=== PATIENT | female | born 1960 | race Caucasian/White ===

== ENCOUNTER 2018-02-19 13:08 | Observation (INO) ==
[2018-02-19 14:37] LABS: Basophils % 0.3 % (0.0-0.8); Hematocrit 40.2 VOL% (35.7-47.0); Hemoglobin 14.1 GM/DL (12.0-16.0); Immature Granulocytes % 0.3 %; Immature Granulocytes Absolute 0.02 #; Lymphocytes # 0.8 10*3/uL (1.4-4.0); Lymphocytes % 11.7 % (21.3-54.2); Mean Corpuscular HGB Conc 35.1 GM/DL (32-36); Mean Corpuscular Hemoglobin 29 PG (27-34); Mean Corpuscular Volume 81.2 FL (87-102); Mean Platelet Volume 11.1 FL (9.6-12.0); Monocytes # 0.1 10*3/uL (0.11-0.8); Monocytes % 0.9 % (1.7-12.7); Neutrophils # 5.8 10*3/uL (1.4-7.4); Neutrophils % 86.8 % (38.7-73.9); Platelet Count 164 T/CUMM (130-400); Red Blood Count 4.95 MC/CUMM (3.8-5.5); Red Cell Distribution Width 15.5 % (9.3-17.3); White Blood Count 6.7 T/CUMM (4-12)
[2018-02-19 14:46] LABS: PT Patient Result 10.4 SECS; Partial Thromboplastin Time 24.3 SECS (0-40)
[2018-02-19 14:59] LABS: Alanine Aminotransferase 28 U/L (13-56); Albumin 3.9 G/DL (3.4-5.0); Alkaline Phosphatase 99 U/L (45-117); Aspartate Amino Transferase 27 U/L (0-37); Blood Urea Nitrogen 12 MG/DL (7-18); Calcium 9.3 MG/DL (8.5-10.1); Glucose 149 MG/DL (74-106); Potassium 2.9 MMOL/L (3.5-5.1); Sodium 136 MMOL/L (136-145)
[2018-02-19] MEDS ORDERED: ACETAMINOPHEN 325 MG TABLET PO PRN (16:13)
[2018-02-19] MEDS ORDERED: PROMETHAZINE 25 MG TABLET PO PRN (16:13)
[2018-02-19] MEDS ORDERED: diphenhydrAMINE CAP 25 MG CAPSULE PO PRN (16:13)
[2018-02-19] MEDS ORDERED: LACTULOSE 20 GM/30 ML UDCUP PO PRN (16:13)
[2018-02-19] MEDS ORDERED: ONDANSETRON 4 MG/2 ML VIAL IV PRN (16:13)
[2018-02-19] MEDS ORDERED: traZODone 50 MG TABLET PO PRN (16:20)
[2018-02-19] MEDS ORDERED: HEPARIN 5,000 UNIT/1 ML VIAL SUBCUT SCH (16:30)
[2018-02-19] MEDS ORDERED: SODIUM CHLORIDE 0.9% 1,000 ML IV SCH (16:30)
[2018-02-19] MEDS ORDERED: DEXTROSE 50% 25 GM/50 ML VIAL IV PRN ×2 (16:34)
[2018-02-19] MEDS ORDERED: GLUCAGON 1 MG VIAL IM PRN ×2 (16:34)
[2018-02-19 16:41] LABS: Apearance,Urine CLEAR (Clear); Bacteria,Urine Occasional /HPF (Few); Bilirubin,Urine Negative (Negative); Blood, Urine Negative (Negative); Glucose,Urine (UA) >=500 mg/dL (Negative); Ketones,Urine Negative (Negative); Nitrite,Urine Negative (Negative); Protein,Urine Negative; RBC,Urine 1 /HPF (0-4); Urine Color Straw (Yellow); Urine Specific Gravity 1.011 (1.001-1.035); Urine Urobilinogen < 2.0 EU/DL (0.2-1.0); WBC,Urine 1 /HPF (0-6)
[2018-02-19] MEDS ORDERED: LABETALOL 20 MG/4 ML SYRINGE IV PRN (16:45)
[2018-02-19 16:49] LABS: Barbiturates Screen,Urine Negative (Negative); Benzodiazepines Screen,Urine Negative (Negative); Cannabinoid Screen,Urine Negative (Negative); Opiate Screen,Urine Negative (Negative); Phencyclidine Screen,Urine Negative (Negative)
[2018-02-19] MEDS ORDERED: POTASSIUM CHLORIDE 20 MEQ TABLET PO STA (16:51)
[2018-02-19] MEDS ORDERED: POTASSIUM CHLORIDE 20 MEQ TABLET PO ONE (16:56)
[2018-02-19] MEDS ORDERED: SODIUM CHLOR 0.9% KCL 40 MEQ 40 MEQ/1,000 ML BAG IV SCH (17:00)
[2018-02-19 17:07] LABS: Risk Ratio 2.78; VLDL CHOLESTEROL 44.4 MG/DL
[2018-02-19] MEDS ORDERED: EMPAGLIFLOZIN PO SCH (21:00)
[2018-02-19] MEDS ORDERED: ATORVASTATIN 40 MG TABLET PO SCH (21:00)
[2018-02-19] MEDS ORDERED: [UNRECOGNIZED DRUG - OTHER] PO SCH (21:00)
[2018-02-19] MEDS ORDERED: METFORMIN HCL PO SCH (21:00)
[2018-02-19] MEDS ORDERED: ROSUVASTATIN 10 MG TABLET PO SCH (21:00)
[2018-02-19] MEDS ORDERED: ENOXAPARIN 40 MG/0.4 ML SYRINGE SUBCUT SCH (21:00)
[2018-02-19] MEDS: SERTRALINE 100 MG TABLET PO SCH (21:08)
[2018-02-19] MEDS: DOCUSATE SODIUM 100 MG CAPSULE PO SCH (21:08)
[2018-02-19] MEDS: risperiDONE 1 MG TABLET PO SCH (21:09)
[2018-02-19] MEDS: INSULIN REGULAR 100 UNIT/ML SUBCUT SCH (21:12)
[2018-02-20 04:48] LABS: Basophils % 0.1 % (0.0-0.8); Hematocrit 38.7 VOL% (35.7-47.0); Hemoglobin 13.1 GM/DL (12.0-16.0); Immature Granulocytes % 0.3 %; Immature Granulocytes Absolute 0.02 #; Lymphocytes # 0.9 10*3/uL (1.4-4.0); Lymphocytes % 13.3 % (21.3-54.2); Mean Corpuscular HGB Conc 33.9 GM/DL (32-36); Mean Corpuscular Hemoglobin 28 PG (27-34); Mean Corpuscular Volume 83.2 FL (87-102); Monocytes # 0.7 10*3/uL (0.11-0.8); Monocytes % 9.5 % (1.7-12.7); Neutrophils # 5.4 10*3/uL (1.4-7.4); Neutrophils % 76.8 % (38.7-73.9); Platelet Count 140 T/CUMM (130-400); Red Blood Count 4.65 MC/CUMM (3.8-5.5); Red Cell Distribution Width 15.8 % (9.3-17.3)
[2018-02-20 05:09] LABS: Albumin 3.5 G/DL (3.4-5.0); Bilirubin,Total 0.9 MG/DL (0.2-1.0); Osmolality,Calculated 284.1 MOS/KG (273-304); Potassium 3.2 MMOL/L (3.5-5.1); Total Protein 7.1 G/DL (6.4-8.3)
[2018-02-20] MEDS: DOCUSATE SODIUM 100 MG CAPSULE PO SCH (08:43)
[2018-02-20] MEDS: SERTRALINE 100 MG TABLET PO SCH (08:43)
[2018-02-20] MEDS: risperiDONE 1 MG TABLET PO SCH (08:43)
[2018-02-20] MEDS: INSULIN REGULAR 100 UNIT/ML SUBCUT SCH ×3 (08:50→16:30)
[2018-02-20] MEDS ORDERED: ASPIRIN 325 MG TABLET PO SCH (09:00)
[2018-02-20] MEDS ORDERED: SERTRALINE 100 MG TABLET PO SCH (09:00)
[2018-02-20] MEDS ORDERED: CETIRIZINE 10 MG TABLET PO SCH (09:00)
[2018-02-20] MEDS ORDERED: ASPIRIN CHEW 81 MG TABLET PO SCH (09:00)
[2018-02-20] MEDS ORDERED: hydroCHLOROthiazide 25 MG TABLET PO SCH (09:00)
[2018-02-20] MEDS ORDERED: METOPROLOL TARTRATE 50 MG TABLET PO SCH (09:00)
[2018-02-20] MEDS ORDERED: POTASSIUM CHLORIDE 20 MEQ TABLET PO SCH (09:00)
[2018-02-20] MEDS ORDERED: PANTOPRAZOLE 40 MG TABLET PO SCH (09:00)
[2018-02-20 16:13] VITALS: BP 124/63
[2018-02-20] MEDS ORDERED: OMEGA 3 ACID ETHYL ESTERS 1 GM CAPSULE PO SCH (21:00)
== END 2018-02-20 17:40 | disposition home or self-care (01) ==
LOC: N.EDINP 13:08 → N.ED 13:08 → INTOOBSV 16:14 → OBSVTOIN 16:45 → N.EDINP 17:38 → N.4E 18:15
PROVIDERS: ADMIT Internal Medicine; ATTEND Internal Medicine

== ENCOUNTER 2021-10-31 17:42 | Observation (INO) ==
[2021-10-31 18:13] LABS: Basophils % 0.5 % (0.0-0.8); Eosinophils # 0.1 10*3/uL (0.0-0.87); Eosinophils % 3.2 % (0.00-10.9); Hematocrit 28.1 VOL% (35.7-47.0); Hemoglobin 8.9 GM/DL (12.0-16.0); Immature Granulocytes Absolute 0.04 #; Lymphocytes # 1.5 10*3/uL (1.4-4.0); Lymphocytes % 37.9 % (21.3-54.2); Mean Corpuscular HGB Conc 31.7 GM/DL (32-36); Mean Corpuscular Volume 85.9 FL (87-102); Monocytes # 0.5 10*3/uL (0.11-0.8); Monocytes % 11.6 % (1.7-12.7); Neutrophils % 45.8 % (38.7-73.9); Platelet Count 124 T/CUMM (130-400); Red Blood Count 3.27 MC/CUMM (3.8-5.5); Red Cell Distribution Width 21.7 % (9.3-17.3); White Blood Count 4.1 T/CUMM (4-12)
[2021-10-31] MEDS ORDERED: PROMETHAZINE 25 MG/1 ML VIAL IM STA (18:24)
[2021-10-31] MEDS ORDERED: ONDANSETRON 4 MG/2 ML VIAL IV STA (18:24)
[2021-10-31 18:34] LABS: Band Neutrophils 13 % (0-10); Eosinophils 6 % (0-10); Lymphocytes 29 % (20-55); Platelet Estimate Decreased; Total Cells Counted 100
[2021-10-31 18:35] LABS: Acanthocytes 1+; Anisocytosis 2+; Ovalocytes 1+; Poikilocytosis 1+; Polychromasia 1+
[2021-10-31 18:38] LABS: Albumin 3.5 G/DL (3.4-5.0); Calcium 9.3 MG/DL (8.5-10.1); Osmolality,Calculated 280.1 MOS/KG (273-304); Potassium 3.4 MMOL/L (3.5-5.1)
[2021-10-31] MEDS ORDERED: PANTOPRAZOLE 40 MG VIAL IV STA (18:55)
[2021-10-31] MEDS ORDERED: SODIUM CHLORIDE 0.9% 1,800 ML IV ONE (18:55)
[2021-10-31] MEDS ORDERED: MAGNESIUM SULF RIDER 2 GM/50 ML PREMIX IV STA (19:26)
[2021-10-31] MEDS ORDERED: LABETALOL 20 MG/4 ML SYRINGE IV ONE (19:59)
[2021-10-31] MEDS ORDERED: LABETALOL 20 MG/4 ML SYRINGE IV STA (20:15)
[2021-10-31] MEDS ORDERED: GLUCAGON 1 MG VIAL IM PRN (20:52)
[2021-10-31] MEDS ORDERED: ACETAMINOPHEN 325 MG TABLET PO PRN (20:52)
[2021-10-31] MEDS ORDERED: DEXTROSE 10% 250 ML BAG IV PRN (20:57)
[2021-10-31] MEDS ORDERED: METOCLOPRAMIDE 10 MG/2 ML VIAL ONE (21:07)
[2021-10-31] MEDS: INSULIN REGULAR 100 UNIT/ML SUBCUT SCH (21:14)
[2021-10-31] MEDS: SODIUM CHLORIDE 0.9% 1,000 ML IV SCH (21:14)
[2021-10-31] MEDS: hydrALAZINE 20 MG/1 ML VIAL IV PRN (22:54)
[2021-11-01] MEDS: ONDANSETRON 4 MG/2 ML VIAL IV PRN ×3 (01:16→21:49)
[2021-11-01] MEDS: hydrALAZINE 20 MG/1 ML VIAL IV PRN ×3 (01:17→10:38)
[2021-11-01 01:25] LABS: Bilirubin,Urine Negative (Negative); Blood, Urine Trace mg/dL (Negative); Glucose,Urine (UA) >=1000 mg/dL (Negative); Ketones,Urine Trace mg/dL (Negative); Nitrite,Urine Negative (Negative); Protein,Urine Negative (Negative); Urine Appearance Clear (Clear); Urine Color Yellow (Yellow); Urine Specific Gravity 1.015 (1.001-1.035); Urine Urobilinogen 0.2 eU/dL (<2.0); Urine pH 6.5 (4.5-8.0)
[2021-11-01 01:29] LABS: RBC,Urine 0-1 /HPF (0-4)
[2021-11-01 02:13] LABS: Basophils % 0.8 % (0.0-0.8); Eosinophils % 1.1 % (0.00-10.9); Hematocrit 30.8 VOL% (35.7-47.0); Hemoglobin 9.8 GM/DL (12.0-16.0); Immature Granulocytes % 1.7 %; Immature Granulocytes Absolute 0.06 #; Lymphocytes # 0.8 10*3/uL (1.4-4.0); Lymphocytes % 22.3 % (21.3-54.2); Mean Corpuscular HGB Conc 31.8 GM/DL (32-36); Mean Corpuscular Volume 85.6 FL (87-102); Monocytes # 0.4 10*3/uL (0.11-0.8); Monocytes % 11.8 % (1.7-12.7); Neutrophils % 62.3 % (38.7-73.9); Platelet Count 190 T/CUMM (130-400); Red Cell Distribution Width 21.9 % (9.3-17.3); White Blood Count 3.6 T/CUMM (4-12)
[2021-11-01 02:40] LABS: Albumin 3.4 G/DL (3.4-5.0); Bilirubin,Total 1.3 MG/DL (0.20-1.00); Calcium 9.1 MG/DL (8.5-10.1); Osmolality,Calculated 276.7 MOS/KG (273-304); Potassium 4.2 MMOL/L (3.5-5.1); Total Protein 8.3 G/DL (6.4-8.2)
[2021-11-01] MEDS: PROMETHAZINE 25 MG/1 ML VIAL IM PRN (05:54)
[2021-11-01] MEDS: SODIUM CHLORIDE 0.9% 1,000 ML IV SCH ×2 (06:10→17:00)
[2021-11-01] MEDS ORDERED: RISPERIDONE 3 MG PO SCH (09:00)
[2021-11-01 09:14] LABS: % Iron Saturation 33.2 % (18-50); Ferritin 556.3 ng/mL (8-252)
[2021-11-01] MEDS: INSULIN REGULAR 100 UNIT/ML SUBCUT SCH ×4 (09:29→21:49)
[2021-11-01] MEDS: ENOXAPARIN 40 MG/0.4 ML SYRINGE SUBCUT SCH (09:30)
[2021-11-01] MEDS: METOPROLOL TARTRATE 50 MG TABLET PO SCH (12:11)
[2021-11-01] MEDS: hydroCHLOROthiazide 25 MG TABLET PO SCH (12:11)
[2021-11-01 13:37] LABS: Folate > 24.00 NG/ML (5.38-24.0); Vitamin B12 571 PG/ML (211-911)
[2021-11-01] MEDS: PANTOPRAZOLE 40 MG VIAL IV SCH (14:10)
[2021-11-01] MEDS ORDERED: INSULIN GLARGINE 100 UNIT/ML SUBCUT SCH (21:00)
[2021-11-01] MEDS: ATORVASTATIN 80 MG TABLET PO SCH (21:51)
[2021-11-02] MEDS: hydrALAZINE 20 MG/1 ML VIAL IV PRN (00:38)
[2021-11-02] MEDS: SODIUM CHLORIDE 0.9% 1,000 ML IV SCH ×2 (03:00→16:11)
[2021-11-02 05:20] LABS: Basophils % 0.3 % (0.0-0.8); Eosinophils # 0.1 10*3/uL (0.0-0.87); Eosinophils % 2.5 % (0.00-10.9); Hematocrit 27.3 VOL% (35.7-47.0); Hemoglobin 8.8 GM/DL (12.0-16.0); Immature Granulocytes % 1.3 %; Immature Granulocytes Absolute 0.05 #; Lymphocytes # 1.2 10*3/uL (1.4-4.0); Lymphocytes % 29.3 % (21.3-54.2); Mean Corpuscular HGB Conc 32.2 GM/DL (32-36); Mean Corpuscular Volume 84.3 FL (87-102); Monocytes # 0.5 10*3/uL (0.11-0.8); Monocytes % 13.3 % (1.7-12.7); Neutrophils % 53.3 % (38.7-73.9); Platelet Count 205 T/CUMM (130-400); Red Blood Count 3.24 MC/CUMM (3.8-5.5); Red Cell Distribution Width 21.9 % (9.3-17.3)
[2021-11-02 05:42] LABS: Albumin 3.3 G/DL (3.4-5.0); Bilirubin,Total 1.7 MG/DL (0.20-1.00); Calcium 9.4 MG/DL (8.5-10.1); Osmolality,Calculated 269.7 MOS/KG (273-304); Potassium 3.3 MMOL/L (3.5-5.1); Total Protein 7.7 G/DL (6.4-8.2)
[2021-11-02 05:53] LABS: Risk Ratio 4.43; VLDL Cholesterol 22.6 MG/DL
[2021-11-02] MEDS: INSULIN REGULAR 100 UNIT/ML SUBCUT SCH ×4 (08:56→21:11)
[2021-11-02] MEDS: PANTOPRAZOLE 40 MG VIAL IV SCH (08:56)
[2021-11-02] MEDS: ENOXAPARIN 40 MG/0.4 ML SYRINGE SUBCUT SCH (08:56)
[2021-11-02] MEDS: METOPROLOL TARTRATE 50 MG TABLET PO SCH (09:09)
[2021-11-02] MEDS: hydroCHLOROthiazide 25 MG TABLET PO SCH (09:09)
[2021-11-02] MEDS: POTASSIUM CHLORIDE RIDER 10 MEQ/100 ML PREMIX IV PRN ×4 (09:55→14:40)
[2021-11-02] MEDS: ONDANSETRON 4 MG/2 ML VIAL IV PRN (09:55)
[2021-11-02] MEDS: POTASSIUM CHLORIDE RIDER 10 MEQ/100 ML PREMIX IV SCH ×2 (17:31→17:32)
[2021-11-02] MEDS: INSULIN GLARGINE 100 UNIT/ML SUBCUT SCH (21:11)
[2021-11-02] MEDS: ATORVASTATIN 80 MG TABLET PO SCH (21:11)
[2021-11-02] MEDS: PROMETHAZINE 25 MG/1 ML VIAL IM PRN (21:16)
[2021-11-03 05:09] LABS: Basophils % 0.8 % (0.0-0.8); Eosinophils # 0.1 10*3/uL (0.0-0.87); Eosinophils % 3.3 % (0.00-10.9); Hematocrit 28.2 VOL% (35.7-47.0); Hemoglobin 8.7 GM/DL (12.0-16.0); Immature Granulocytes % 1.4 %; Immature Granulocytes Absolute 0.05 #; Lymphocytes # 1.4 10*3/uL (1.4-4.0); Lymphocytes % 39.6 % (21.3-54.2); Mean Corpuscular HGB Conc 30.9 GM/DL (32-36); Mean Corpuscular Volume 85.2 FL (87-102); Monocytes # 0.5 10*3/uL (0.11-0.8); Monocytes % 14.8 % (1.7-12.7); Neutrophils % 40.1 % (38.7-73.9); Platelet Count 176 T/CUMM (130-400); Red Blood Count 3.31 MC/CUMM (3.8-5.5); Red Cell Distribution Width 21.3 % (9.3-17.3); White Blood Count 3.6 T/CUMM (4-12)
[2021-11-03 05:37] LABS: Bilirubin,Total 1.9 MG/DL (0.20-1.00); Calcium 8.9 MG/DL (8.5-10.1); Osmolality,Calculated 268.5 MOS/KG (273-304); Potassium 3.7 MMOL/L (3.5-5.1); Total Protein 7.3 G/DL (6.4-8.2)
[2021-11-03 05:40] LABS: Atypical Lymphocytes Few; Eosinophils 6 % (0-10); Hypochromia Slight; Lymphocytes 39 % (20-55); Microcytosis Slight; Ovalocytes Slight; Platelet Estimate Adequate; Total Cells Counted 100
[2021-11-03] MEDS: SODIUM CHLORIDE 0.9% 1,000 ML IV SCH (05:49)
[2021-11-03] MEDS ORDERED: MAGNESIUM SULF RIDER 2 GM/50 ML PREMIX IV ONE (08:30)
[2021-11-03] MEDS: INSULIN REGULAR 100 UNIT/ML SUBCUT SCH ×4 (09:44→21:06)
[2021-11-03] MEDS: hydroCHLOROthiazide 25 MG TABLET PO SCH (09:46)
[2021-11-03] MEDS: METOPROLOL TARTRATE 50 MG TABLET PO SCH (09:46)
[2021-11-03] MEDS: PANTOPRAZOLE 40 MG VIAL IV SCH (09:47)
[2021-11-03] MEDS ORDERED: propofoL 200 MG/20 ML VIAL IV ONE (10:10)
[2021-11-03] MEDS ORDERED: LIDOCAINE 2% 5 ML VIAL ONE (10:10)
[2021-11-03] MEDS: LACTATED RINGERS 1,000 ML IV SCH (18:30)
[2021-11-03] MEDS: ATORVASTATIN 80 MG TABLET PO SCH (21:05)
[2021-11-03] MEDS: INSULIN GLARGINE 100 UNIT/ML SUBCUT SCH (21:06)
[2021-11-04] MEDS: SODIUM CHLORIDE 0.9% 1,000 ML IV SCH (00:41)
[2021-11-04 05:58] LABS: Basophils % 0.8 % (0.0-0.8); Eosinophils # 0.1 10*3/uL (0.0-0.87); Eosinophils % 3.6 % (0.00-10.9); Hematocrit 25.5 VOL% (35.7-47.0); Hemoglobin 8.1 GM/DL (12.0-16.0); Immature Granulocytes % 1.1 %; Immature Granulocytes Absolute 0.04 #; Lymphocytes # 2.1 10*3/uL (1.4-4.0); Lymphocytes % 59.5 % (21.3-54.2); Mean Corpuscular HGB Conc 31.8 GM/DL (32-36); Mean Corpuscular Volume 85.6 FL (87-102); Monocytes # 0.5 10*3/uL (0.11-0.8); Monocytes % 13.7 % (1.7-12.7); Neutrophils % 21.3 % (38.7-73.9); Platelet Count 166 T/CUMM (130-400); Red Blood Count 2.98 MC/CUMM (3.8-5.5); Red Cell Distribution Width 21.3 % (9.3-17.3); White Blood Count 3.6 T/CUMM (4-12)
[2021-11-04 06:20] LABS: Albumin 2.9 G/DL (3.4-5.0); Bilirubin,Total 1.2 MG/DL (0.20-1.00); Calcium 9.2 MG/DL (8.5-10.1); Osmolality,Calculated 272.2 MOS/KG (273-304); Potassium 3.2 MMOL/L (3.5-5.1); Total Protein 6.9 G/DL (6.4-8.2)
[2021-11-04 07:20] LABS: Eosinophils 5 % (0-10); Lymphocytes 50 % (20-55); Platelet Estimate Normal; Total Cells Counted 100
[2021-11-04 07:21] LABS: Anisocytosis 1+; Elliptocytes 1+; Poikilocytosis 1+
[2021-11-04] MEDS: INSULIN REGULAR 100 UNIT/ML SUBCUT SCH ×2 (08:03→12:11)
[2021-11-04] MEDS: LACTATED RINGERS 1,000 ML IV SCH (08:06)
[2021-11-04] MEDS: POTASSIUM CHLORIDE RIDER 10 MEQ/100 ML PREMIX IV PRN (08:10)
[2021-11-04] MEDS: hydroCHLOROthiazide 25 MG TABLET PO SCH (09:49)
[2021-11-04] MEDS: PANTOPRAZOLE 40 MG VIAL IV SCH (09:49)
[2021-11-04] MEDS: METOPROLOL TARTRATE 50 MG TABLET PO SCH (09:49)
[2021-11-04 11:56] VITALS: BP 108/39
== END 2021-11-04 13:10 | disposition home or self-care (01) ==
LOC: EDUNIT# → EDBD → N.ED 17:42 → N.3E 17:42 → SUATTDRO 11-02 12:14
PROVIDERS: ADMIT Internal Medicine; ATTEND Internal Medicine

== ENCOUNTER 2022-02-08 08:12 | Inpatient (IN) ==
[2022-02-08] MEDS ORDERED: PANTOPRAZOLE INJ 80 MG in SODIUM CHLORIDE 0.9% 100 ML IV ONE (08:26)
[2022-02-08] MEDS ORDERED: SODIUM CHLORIDE 0.9% 1,000 ML IV STA ×2 (08:26→08:54)
[2022-02-08] MEDS ORDERED: ONDANSETRON 4 MG/2 ML VIAL IV ONE (08:26)
[2022-02-08 08:44] LABS: Eosinophils # 0.7 10*3/uL (0.0-0.87); Eosinophils % 1.3 % (0.00-10.9); Immature Granulocytes % 12.7 %; Immature Granulocytes Absolute 6.42 #; Lymphocytes # 7.3 10*3/uL (1.4-4.0); Lymphocytes % 14.4 % (21.3-54.2); Mean Corpuscular HGB Conc 30.3 GM/DL (32-36); Monocytes % 55.3 % (1.7-12.7); NRBC # 0.26 10*3/uL; Neutrophils % 16.3 % (38.7-73.9); Platelet Count 139 T/CUMM (130-400); Red Blood Count 1.67 MC/CUMM (3.8-5.5); Red Cell Distribution Width 32.8 % (9.3-17.3)
[2022-02-08 08:47] LABS: Hematocrit 13.2 VOL% (35.7-47.0); INR 1.7; PT Patient Result 17.8 SECS (10.1-12.1); White Blood Count 50.6 T/CUMM (4-12)
[2022-02-08] MEDS ORDERED: SODIUM CHLORIDE 0.9% 1,000 ML IV PRN (08:52)
[2022-02-08 08:59] LABS: Albumin 2.7 G/DL (3.4-5.0); Bilirubin,Total 2.9 MG/DL (0.20-1.00); Calcium 8.2 MG/DL (8.5-10.1); Potassium 3.7 MMOL/L (3.5-5.1); Total Protein 6.6 G/DL (6.4-8.2)
[2022-02-08 09:02] LABS: Band Neutrophils 4 % (0-10); Eosinophils 2 % (0-10); Lymphocytes 36 % (20-55); Nucleated Red Blood Cells 2 /100 WBC (0-5); Total Cells Counted 100
[2022-02-08 09:03] LABS: Atypical Lymphocytes Moderate; Hypochromia 1+; Microcytosis 1+; Ovalocytes Few
[2022-02-08 09:04] LABS: Giant Platelets Few; Platelet Estimate Adequate
[2022-02-08] MEDS ORDERED: SODIUM CHLORIDE 0.9% 500 ML IV STA (09:40)
[2022-02-08] MEDS ORDERED: diphenhydrAMINE 50 MG/1 ML VIAL IV STA (10:01)
[2022-02-08] MEDS ORDERED: diphenhydrAMINE 50 MG/1 ML VIAL ONE (10:02)
[2022-02-08 10:20] LABS: Arterial Base Excess iSTAT -17 MMOL/L (-2.5-2.5); Arterial Bicarbonate iSTAT 11.5 MMOL/L (20-26); Arterial O2 Saturation iSTAT 90 % (95-100); Arterial PCO2 iSTAT 40 MM HG (35-48); Arterial PO2 iSTAT 81 MM HG (80-95); Arterial Total CO2 iSTAT 13 MMO/L (23-27); Arterial pH iSTAT 7.069 (7.35-7.45)
[2022-02-08] MEDS: PANTOPRAZOLE INJ 200 MG in SODIUM CHLORIDE 0.9% 250 ML IV SCH (10:45)
[2022-02-08] MEDS ORDERED: PIPERACILLIN/TAZOBACTAM 3,375 MG in SODIUM CHLORIDE 0.9% 100 ML IV STA (10:55)
[2022-02-08] MEDS ORDERED: VANCOMYCIN INJ 1,000 MG in SODIUM CHLORIDE 0.9% 250 ML IV STA (10:55)
[2022-02-08] MEDS ORDERED: ETOMIDATE 20 MG/10 ML VIAL IV ONE (11:02)
[2022-02-08] MEDS ORDERED: ROCURONIUM 100 MG/10 ML VIAL IV ONE (11:03)
[2022-02-08] MEDS ORDERED: ALBUTEROL 2.5 MG/3 ML NEB RESP TX PRN (11:45)
[2022-02-08] MEDS ORDERED: MIDAZOLAM 100 MG in SODIUM CHLORIDE 0.9% 80 ML IV PRN (11:46)
[2022-02-08] MEDS ORDERED: LACTATED RINGERS 1,000 ML IV SCH (12:00)
[2022-02-08 12:02] LABS: Bacteria,Urine Few /HPF (Few); Hyaline Casts,Urine 16 /LPF (0-3); Mucus,Urine Few /LPF (Occasional); RBC,Urine 8 /HPF (0-4); Squamous Epithelial Cell,Urine Occasional /HPF (0-10)
[2022-02-08 12:04] LABS: Bilirubin,Urine Small mg/dL (Negative); Blood, Urine Trace mg/dL (Negative); Glucose,Urine (UA) Negative (Negative); Ketones,Urine Negative (Negative); Nitrite,Urine Negative (Negative); Protein,Urine 100 mg/dL (Negative); Urine Appearance Clear (Clear); Urine Color Dark yellow (Yellow); Urine Urobilinogen >= 8.0 eU/dL (<2.0); Urine pH 5.5 (4.5-8.0)
[2022-02-08 12:08] LABS: Folate 10.38 NG/ML (5.38-24.0)
[2022-02-08 12:18] LABS: Arterial Base Excess iSTAT -14 MMOL/L (-2.5-2.5); Arterial Bicarbonate iSTAT 15.1 MMOL/L (20-26); Arterial O2 Saturation iSTAT 98 % (95-100); Arterial PCO2 iSTAT 50 MM HG (35-48); Arterial PO2 iSTAT 153 MM HG (80-95); Arterial Total CO2 iSTAT 17 MMO/L (23-27)
[2022-02-08] MEDS ORDERED: SODIUM BICARBONATE 50 MEQ/50 ML VIAL IV ONE (12:49)
[2022-02-08] MEDS ORDERED: MIDAZOLAM 2 MG/2 ML VIAL ONE (13:21)
[2022-02-08 13:28] LABS: Hepatitis B Core IgM Quant 0.05 Index; Hepatitis B Surface Ag Quant < 0.10 Index; Hepatitis B Surface Ag Result Non-Reactive (NonReactive); Hepatitis C Virus Ab Quant < 0.02 Index; Hepatitis C Virus Ab Result Non-Reactive (NonReactive)
[2022-02-08] MEDS ORDERED: MIDAZOLAM 2 MG/2 ML VIAL IV ONE (13:30)
[2022-02-08] MEDS: SODIUM BICARB INJ 150 MEQ in STERILE WATER INJ 1,000 ML IV SCH ×2 (14:07→23:23)
[2022-02-08] MEDS: NOREPINEPHRINE 8 MG in SODIUM CHLORIDE 0.9% 242 ML IV PRN (14:08)
[2022-02-08 14:49] LABS: Basophils % 0.1 % (0.0-0.8); Eosinophils # 0.4 10*3/uL (0.0-0.87); Immature Granulocytes % 14.1 %; Lymphocytes # 5.9 10*3/uL (1.4-4.0); Mean Corpuscular HGB Conc 30.9 GM/DL (32-36); Mean Corpuscular Volume 81.4 FL (87-102); Monocytes # 23.3 10*3/uL (0.11-0.8); Monocytes % 51.4 % (1.7-12.7); NRBC # 0.33 10*3/uL; Neutrophils % 20.4 % (38.7-73.9); Platelet Count 116 T/CUMM (130-400); Red Blood Count 1.83 MC/CUMM (3.8-5.5); Red Cell Distribution Width 28.6 % (9.3-17.3)
[2022-02-08 14:52] LABS: ABG HCO3 22.8 MMOL/L (20-26); ABG Oxygen Saturation 99.8 % (95-100); ABG PCO2 31.2 MM HG (35-48); ABG PH 7.444 (7.35-7.45); ABG TCO2 19.5 MMOL/L (23-27)
[2022-02-08 14:53] LABS: White Blood Count 45.4 T/CUMM (4-12)
[2022-02-08 14:54] LABS: Hemoglobin 4.6 GM/DL (12.0-16.0)
[2022-02-08 14:55] LABS: Hematocrit 14.9 VOL% (35.7-47.0)
[2022-02-08] MEDS: fentaNYL INJ 1,250 MCG in SODIUM CHLORIDE 0.9% 225 ML IV PRN (15:07)
[2022-02-08 15:22] LABS: % Iron Saturation 104.1 % (18-50); Ferritin 20411.1 ng/mL (8-252)
[2022-02-08 15:39] LABS: Band Neutrophils 7 % (0-10); Eosinophils 2 % (0-10); Lymphocytes 35 % (20-55); Myelocytes 3 %; Nucleated Red Blood Cells 1 /100 WBC (0-5); Promyelocytes 1 %; Total Cells Counted 100
[2022-02-08 15:40] LABS: Anisocytosis 1+; Atypical Lymphocytes Few; Hypochromia 1+; Macrocytosis 1+; Microcytosis 1+
[2022-02-08 15:41] LABS: Ovalocytes Few; Platelet Estimate Decreased; Poikilocytosis Few; Polychromasia Few; Schistocytes Few; Tear Drop Cells Few
[2022-02-08] MEDS: VASOPRESSIN 100 UNITS in SODIUM CHLORIDE 0.9% 95 ML IV SCH (17:42)
[2022-02-08] MEDS ORDERED: PANTOPRAZOLE 40 MG VIAL IV SCH (21:00)
[2022-02-08] MEDS: PIPERACILLIN/TAZOBACTAM 3,375 MG in SODIUM CHLORIDE 0.9% 100 ML IV SCH (21:37)
[2022-02-09 00:36] LABS: Hematocrit 25.1 VOL% (35.7-47.0); Hemoglobin 8.3 GM/DL (12.0-16.0)
[2022-02-09] MEDS: NOREPINEPHRINE 8 MG in SODIUM CHLORIDE 0.9% 242 ML IV PRN ×2 (00:53→17:16)
[2022-02-09] MEDS: VASOPRESSIN 100 UNITS in SODIUM CHLORIDE 0.9% 95 ML IV SCH ×3 (02:00→18:06)
[2022-02-09] MEDS: PIPERACILLIN/TAZOBACTAM 3,375 MG in SODIUM CHLORIDE 0.9% 100 ML IV SCH ×3 (03:57→21:40)
[2022-02-09 04:21] LABS: ABG Base Excess 1.9 MMOL/L (-2.5-2.5); ABG HCO3 26.1 MMOL/L (20-26); ABG Oxygen Saturation 99.2 % (95-100); ABG PH 7.488 (7.35-7.45); ABG TCO2 23.2 MMOL/L (23-27)
[2022-02-09 04:36] LABS: INR 2.5
[2022-02-09 04:38] LABS: Cholesterol < 50 MG/DL (50-200); HDL Cholesterol 17 MG/DL (40-60); Risk Ratio 2.94; Triglycerides 66 MG/DL (2-150); VLDL Cholesterol 13.2 MG/DL
[2022-02-09 04:40] LABS: Basophils # 0.2 10*3/uL (0.0-0.2); Basophils % 0.4 % (0.0-0.8); Eosinophils # 0.6 10*3/uL (0.0-0.87); Hematocrit 24.1 VOL% (35.7-47.0); Hemoglobin 7.9 GM/DL (12.0-16.0); Immature Granulocytes % 15.4 %; Immature Granulocytes Absolute 8.57 #; Lymphocytes # 5.9 10*3/uL (1.4-4.0); Lymphocytes % 10.7 % (21.3-54.2); Mean Corpuscular HGB Conc 32.8 GM/DL (32-36); Mean Corpuscular Volume 80.1 FL (87-102); Monocytes # 31.1 10*3/uL (0.11-0.8); Monocytes % 56.1 % (1.7-12.7); NRBC # 0.47 10*3/uL; Neutrophils % 16.4 % (38.7-73.9); Platelet Count 97 T/CUMM (130-400); Red Blood Count 3.01 MC/CUMM (3.8-5.5); Red Cell Distribution Width 22.3 % (9.3-17.3); White Blood Count 55.5 T/CUMM (4-12)
[2022-02-09 04:52] LABS: Albumin 2.2 G/DL (3.4-5.0); Bilirubin,Total 3.7 MG/DL (0.20-1.00); Calcium 7.4 MG/DL (8.5-10.1); Potassium 3.1 MMOL/L (3.5-5.1); Total Protein 5.9 G/DL (6.4-8.2)
[2022-02-09 05:07] LABS: Band Neutrophils 3 % (0-10); Lymphocytes 41 % (20-55); Metamyelocytes 2 %; Nucleated Red Blood Cells 4 /100 WBC (0-5); Promyelocytes 1 %; Total Cells Counted 100
[2022-02-09 05:09] LABS: Atypical Lymphocytes Moderate; Hypochromia 1+; Microcytosis 1+; Ovalocytes Few
[2022-02-09 05:10] LABS: Schistocytes Slight; Target Cells Slight
[2022-02-09 05:11] LABS: Platelet Estimate Decreased
[2022-02-09] MEDS ORDERED: VANCOMYCIN INJ 1,500 MG in SODIUM CHLORIDE 0.9% 500 ML IV SCH (06:00)
[2022-02-09] MEDS ORDERED: MAGNESIUM SULF RIDER 4 GM/100 ML PREMIX IV PRN (06:58)
[2022-02-09] MEDS ORDERED: CALCIUM GLUCONATE RIDER 1,000 MG/50 ML PREMIX IV ONE (07:00)
[2022-02-09] MEDS: CHOLECALCIFEROL 5,000 UNIT TABLET PO SCH (08:22)
[2022-02-09] MEDS: SODIUM BICARB INJ 150 MEQ in STERILE WATER INJ 1,000 ML IV SCH ×2 (08:22→17:29)
[2022-02-09] MEDS: POTASSIUM CHLORIDE RIDER 20 MEQ/100 ML PREMIX IV PRN ×2 (08:29→10:50)
[2022-02-09] MEDS: PANTOPRAZOLE INJ 200 MG in SODIUM CHLORIDE 0.9% 250 ML IV SCH (10:08)
[2022-02-09] MEDS: fentaNYL INJ 1,250 MCG in SODIUM CHLORIDE 0.9% 225 ML IV PRN (10:10)
[2022-02-09] MEDS ORDERED: ROCURONIUM 50 MG/5 ML VIAL IV ONE (10:15)
[2022-02-09] MEDS: MIDAZOLAM DRIP 100 MG/100 ML PREMIX IV PRN (15:37)
[2022-02-10] MEDS: VASOPRESSIN 100 UNITS in SODIUM CHLORIDE 0.9% 95 ML IV SCH ×3 (02:30→21:45)
[2022-02-10] MEDS: SODIUM BICARB INJ 150 MEQ in STERILE WATER INJ 1,000 ML IV SCH (02:40)
[2022-02-10] MEDS: MIDAZOLAM DRIP 100 MG/100 ML PREMIX IV PRN ×2 (03:50→15:09)
[2022-02-10 05:31] LABS: Basophils # 0.2 10*3/uL (0.0-0.2); Basophils % 0.3 % (0.0-0.8); Eosinophils # 1.1 10*3/uL (0.0-0.87); Eosinophils % 2.3 % (0.00-10.9); Hematocrit 22.5 VOL% (35.7-47.0); Hemoglobin 7.3 GM/DL (12.0-16.0); Immature Granulocytes % 15.8 %; Immature Granulocytes Absolute 7.53 #; Lymphocytes # 5.2 10*3/uL (1.4-4.0); Lymphocytes % 10.9 % (21.3-54.2); Mean Corpuscular HGB Conc 32.4 GM/DL (32-36); Mean Corpuscular Volume 80.9 FL (87-102); Monocytes # 24.1 10*3/uL (0.11-0.8); Monocytes % 50.5 % (1.7-12.7); NRBC # 0.23 10*3/uL; Neutrophils % 20.2 % (38.7-73.9); Platelet Count 52 T/CUMM (130-400); Red Blood Count 2.78 MC/CUMM (3.8-5.5); Red Cell Distribution Width 22.6 % (9.3-17.3)
[2022-02-10 05:36] LABS: Arterial Bicarbonate iSTAT 30.4 MMOL/L (20-26); Arterial pH iSTAT 7.592 (7.35-7.45)
[2022-02-10 05:40] LABS: White Blood Count 47.7 T/CUMM (4-12)
[2022-02-10 06:17] LABS: Albumin 1.9 G/DL (3.4-5.0); Bilirubin,Total 3.6 MG/DL (0.20-1.00); Calcium 7.3 MG/DL (8.5-10.1); Osmolality,Calculated 292.1 MOS/KG (273-304); Potassium 2.6 MMOL/L (3.5-5.1); Total Protein 5.5 G/DL (6.4-8.2)
[2022-02-10 06:20] LABS: Band Neutrophils 21 % (0-10); Eosinophils 3 % (0-10); Lymphocytes 18 % (20-55); Metamyelocytes 5 %; Myelocytes 15 %; Nucleated Red Blood Cells 5 /100 WBC (0-5); Platelet Estimate Decreased; Promyelocytes 8 %; Total Cells Counted 100
[2022-02-10 06:21] LABS: Atypical Lymphocytes Few
[2022-02-10 06:22] LABS: Anisocytosis 1+; Burr Cells Few; Ovalocytes Few; Poikilocytosis Slight; Tear Drop Cells Few
[2022-02-10] MEDS: PIPERACILLIN/TAZOBACTAM 3,375 MG in SODIUM CHLORIDE 0.9% 100 ML IV SCH ×3 (06:30→22:10)
[2022-02-10] MEDS: CHOLECALCIFEROL 5,000 UNIT TABLET PO SCH (08:29)
[2022-02-10] MEDS ORDERED: POTASSIUM CHLORIDE INJ 50 MEQ in SODIUM CHLORIDE 0.9% 500 ML IV ONE (09:00)
[2022-02-10 09:29] LABS: Hematocrit 21.7 VOL% (35.7-47.0); Hemoglobin 7.1 GM/DL (12.0-16.0)
[2022-02-10 09:57] LABS: Vitamin B12 > 2000 PG/ML (211-911)
[2022-02-10] MEDS: SODIUM CHLOR 0.45% KCL 20 MEQ 20 MEQ/1,000 ML BAG IV SCH ×2 (09:57→23:17)
[2022-02-10] MEDS: PANTOPRAZOLE 40 MG VIAL IV SCH ×2 (09:57→21:59)
[2022-02-10 10:01] LABS: % Iron Saturation 99.2 % (18-50); Thyroid Stimulating Hormone 0.359 uIU/ml (0.358-3.74)
[2022-02-10 15:12] LABS: Hematocrit 21.6 VOL% (35.7-47.0)
[2022-02-10] MEDS ORDERED: SODIUM CHLORIDE 0.9% 1,000 ML IV PRN (18:03)
[2022-02-10] MEDS: POTASSIUM BICARB EFFERVESCENT 20 MEQ TAB.EFF PER TUBE PRN ×3 (18:25→23:18)
[2022-02-10] MEDS: FOLIC ACID 1 MG TABLET PO SCH (22:02)
[2022-02-11] MEDS: POTASSIUM BICARB EFFERVESCENT 20 MEQ TAB.EFF PER TUBE PRN ×6 (01:25→13:02)
[2022-02-11] MEDS: MIDAZOLAM DRIP 100 MG/100 ML PREMIX IV PRN ×2 (01:44→15:12)
[2022-02-11] MEDS: PIPERACILLIN/TAZOBACTAM 3,375 MG in SODIUM CHLORIDE 0.9% 100 ML IV SCH (04:46)
[2022-02-11 04:48] LABS: ABG Base Excess 7.3 MMOL/L (-2.5-2.5); ABG Oxygen Saturation 93.6 % (95-100); ABG PCO2 33.7 MM HG (35-48); ABG PH 7.554 (7.35-7.45); ABG PO2 64.9 MM HG (80-95); ABG TCO2 26.9 MMOL/L (23-27)
[2022-02-11] MEDS: VASOPRESSIN 100 UNITS in SODIUM CHLORIDE 0.9% 95 ML IV SCH (04:53)
[2022-02-11 05:03] LABS: Basophils # 0.1 10*3/uL (0.0-0.2); Basophils % 0.2 % (0.0-0.8); Eosinophils # 1.6 10*3/uL (0.0-0.87); Eosinophils % 3.4 % (0.00-10.9); Hematocrit 24.2 VOL% (35.7-47.0); Hemoglobin 8.1 GM/DL (12.0-16.0); Immature Granulocytes Absolute 6.86 #; Lymphocytes # 4.1 10*3/uL (1.4-4.0); Lymphocytes % 8.9 % (21.3-54.2); Mean Corpuscular HGB Conc 33.5 GM/DL (32-36); Mean Corpuscular Volume 82.3 FL (87-102); Monocytes # 22.6 10*3/uL (0.11-0.8); Monocytes % 49.2 % (1.7-12.7); NRBC # 0.24 10*3/uL; Neutrophils % 23.3 % (38.7-73.9); Platelet Count 41 T/CUMM (130-400); Red Blood Count 2.94 MC/CUMM (3.8-5.5); Red Cell Distribution Width 20.7 % (9.3-17.3)
[2022-02-11 05:07] LABS: White Blood Count 45.8 T/CUMM (4-12)
[2022-02-11 05:28] LABS: Albumin 1.7 G/DL (3.4-5.0); Bilirubin,Total 2.8 MG/DL (0.20-1.00); Calcium 7.3 MG/DL (8.5-10.1); Potassium 3.2 MMOL/L (3.5-5.1); Total Protein 5.2 G/DL (6.4-8.2)
[2022-02-11 05:29] LABS: Albumin 1.8 G/DL (3.4-5.0); Bilirubin,Direct 1.59 MG/DL (0.0-0.20); Bilirubin,Indirect 1.2 MG/DL (0.0-1.0); Bilirubin,Total 2.8 MG/DL (0.20-1.00); Calcium 7.3 MG/DL (8.5-10.1); Potassium 3.2 MMOL/L (3.5-5.1); Total Protein 5.2 G/DL (6.4-8.2)
[2022-02-11 05:31] LABS: Band Neutrophils 2 % (0-10); Eosinophils 1 % (0-10); Lymphocytes 41 % (20-55); Metamyelocytes 8 %; Myelocytes 11 %; Promyelocytes 3 %; Total Cells Counted 100
[2022-02-11 05:32] LABS: Platelet Estimate Decreased; Target Cells Few
[2022-02-11 05:45] LABS: INR 1.8; PT Patient Result 18.7 SECS (10.1-12.1)
[2022-02-11] MEDS: fentaNYL INJ 1,250 MCG in SODIUM CHLORIDE 0.9% 225 ML IV PRN (05:45)
[2022-02-11] MEDS: FOLIC ACID 1 MG TABLET PO SCH ×2 (08:12→20:34)
[2022-02-11] MEDS: CHOLECALCIFEROL 5,000 UNIT TABLET PO SCH (08:13)
[2022-02-11] MEDS: PANTOPRAZOLE 40 MG VIAL IV SCH ×2 (08:13→20:34)
[2022-02-11] MEDS ORDERED: FUROSEMIDE 40 MG/4 ML VIAL IV ONE (08:45)
[2022-02-11] MEDS: ALBUTEROL/IPRATROPIUM 3 ML NEB RESP TX SCH ×3 (09:14→18:44)
[2022-02-11] MEDS ORDERED: PHYTONADIONE 5 MG/5 ML ORAL.SYR PO ONE (09:19)
[2022-02-11] MEDS ORDERED: LACTATED RINGERS 500 ML IV ONE (09:20)
[2022-02-11] MEDS ORDERED: POTASSIUM PHOSPHATE 30 MMOL in SODIUM CHLORIDE 0.9% 250 ML IV ONE (09:21)
[2022-02-11] MEDS ORDERED: cefTRIAXone 1,000 MG in SODIUM CHLORIDE 0.9% 100 ML IV SCH (09:30)
[2022-02-11] MEDS: SODIUM CHLOR 0.45% KCL 20 MEQ 20 MEQ/1,000 ML BAG IV SCH (11:16)
[2022-02-11] MEDS ORDERED: VANCOMYCIN INJ 1,250 MG in SODIUM CHLORIDE 0.9% 250 ML IV PRN (15:00)
[2022-02-11] MEDS ORDERED: INSULIN REGULAR 100 UNIT/ML ONE (16:52)
[2022-02-11] MEDS: INSULIN REGULAR 100 UNIT/ML SUBCUT SCH ×2 (16:53→18:02)
[2022-02-11] MEDS ORDERED: ALTEPLASE 2 MG VIAL IV ONE (17:55)
[2022-02-11 19:20] LABS: Arterial Bicarbonate iSTAT 28.7 MMOL/L (20-26); Arterial pH iSTAT 7.576 (7.35-7.45)
[2022-02-11] MEDS ORDERED: SODIUM PHOSPHATE INJ 30 MMOL in SODIUM CHLORIDE 0.9% 250 ML IV ONE (21:00)
[2022-02-12] MEDS: SODIUM CHLOR 0.45% KCL 20 MEQ 20 MEQ/1,000 ML BAG IV SCH (00:16)
[2022-02-12] MEDS: INSULIN REGULAR 100 UNIT/ML SUBCUT SCH ×5 (00:16→23:53)
[2022-02-12] MEDS: ALBUTEROL/IPRATROPIUM 3 ML NEB RESP TX SCH ×4 (00:19→19:37)
[2022-02-12 03:59] LABS: Basophils # 0.2 10*3/uL (0.0-0.2); Basophils % 0.3 % (0.0-0.8); Eosinophils # 1.1 10*3/uL (0.0-0.87); Eosinophils % 2.2 % (0.00-10.9); Hematocrit 24.7 VOL% (35.7-47.0); Hemoglobin 7.9 GM/DL (12.0-16.0); Immature Granulocytes % 12.4 %; Immature Granulocytes Absolute 6.11 #; Lymphocytes # 7.2 10*3/uL (1.4-4.0); Lymphocytes % 14.6 % (21.3-54.2); Mean Corpuscular Volume 85.2 FL (87-102); Monocytes # 26.9 10*3/uL (0.11-0.8); Monocytes % 54.7 % (1.7-12.7); NRBC # 0.33 10*3/uL; Neutrophils % 15.8 % (38.7-73.9); Red Cell Distribution Width 21.2 % (9.3-17.3)
[2022-02-12 04:02] LABS: Platelet Count 25 T/CUMM (130-400); White Blood Count 49.2 T/CUMM (4-12)
[2022-02-12 04:14] LABS: Arterial Bicarbonate iSTAT 28.9 MMOL/L (20-26); Arterial pH iSTAT 7.428 (7.35-7.45)
[2022-02-12 04:26] LABS: Atypical Lymphocytes 3+; Band Neutrophils 5 % (0-10); Eosinophils 1 % (0-10); Lymphocytes 46 % (20-55); Metamyelocytes 4 %; Myelocytes 11 %; Platelet Estimate Decreased; Promyelocytes 3 %; Total Cells Counted 100
[2022-02-12 04:43] LABS: Albumin 1.7 G/DL (3.4-5.0); Bilirubin,Direct 1.07 MG/DL (0.0-0.20); Bilirubin,Indirect 0.8 MG/DL (0.0-1.0); Bilirubin,Total 1.9 MG/DL (0.20-1.00); Osmolality,Calculated 296.8 MOS/KG (273-304); Potassium 4.2 MMOL/L (3.5-5.1); Total Protein 5.5 G/DL (6.4-8.2)
[2022-02-12 04:52] LABS: % Iron Saturation 70.6 % (18-50); Ferritin 2700.7 ng/mL (8-252)
[2022-02-12] MEDS ORDERED: cefTRIAXone 2,000 MG in SODIUM CHLORIDE 0.9% 100 ML IV SCH (09:00)
[2022-02-12] MEDS: FOLIC ACID 1 MG TABLET PO SCH ×2 (09:45→20:21)
[2022-02-12] MEDS: POTASSIUM PHOS/SOD PHOS POWDER 250 MG PACK PER TUBE SCH ×2 (09:45→20:21)
[2022-02-12] MEDS: CHOLECALCIFEROL 5,000 UNIT TABLET PO SCH (09:45)
[2022-02-12] MEDS: PANTOPRAZOLE 40 MG VIAL IV SCH ×2 (09:46→20:21)
[2022-02-12] MEDS: ceFAZolin 2,000 MG in SODIUM CHLORIDE 0.9% 100 ML IV SCH ×2 (09:46→16:38)
[2022-02-12] MEDS: INSULIN GLARGINE 100 UNIT/ML SUBCUT SCH (09:47)
[2022-02-12] MEDS ORDERED: PHYTONADIONE INJ 5 MG in SODIUM CHLORIDE 0.9% 50 ML IV ONE (11:59)
[2022-02-13] MEDS: ALBUTEROL/IPRATROPIUM 3 ML NEB RESP TX SCH ×4 (00:30→19:29)
[2022-02-13 04:05] LABS: Arterial Bicarbonate iSTAT 28.9 MMOL/L (20-26); Arterial pH iSTAT 7.439 (7.35-7.45)
[2022-02-13 04:20] LABS: Basophils # 0.1 10*3/uL (0.0-0.2); Basophils % 0.2 % (0.0-0.8); Eosinophils # 1.3 10*3/uL (0.0-0.87); Eosinophils % 2.5 % (0.00-10.9); Hematocrit 23.2 VOL% (35.7-47.0); Hemoglobin 7.4 GM/DL (12.0-16.0); Immature Granulocytes % 5.7 %; Lymphocytes # 7.5 10*3/uL (1.4-4.0); Lymphocytes % 14.6 % (21.3-54.2); Mean Corpuscular HGB Conc 31.9 GM/DL (32-36); Mean Corpuscular Volume 86.6 FL (87-102); Monocytes # 26.5 10*3/uL (0.11-0.8); Monocytes % 51.7 % (1.7-12.7); NRBC # 0.33 10*3/uL; Neutrophils % 25.3 % (38.7-73.9); Red Blood Count 2.68 MC/CUMM (3.8-5.5); Red Cell Distribution Width 21.7 % (9.3-17.3)
[2022-02-13 04:22] LABS: Platelet Count 18 T/CUMM (130-400); White Blood Count 51.3 T/CUMM (4-12)
[2022-02-13 04:37] LABS: Albumin 1.7 G/DL (3.4-5.0); Bilirubin,Direct 0.96 MG/DL (0.0-0.20); Bilirubin,Indirect 0.6 MG/DL (0.0-1.0); Bilirubin,Total 1.6 MG/DL (0.20-1.00); Calcium 7.4 MG/DL (8.5-10.1); Osmolality,Calculated 294.7 MOS/KG (273-304); Potassium 3.8 MMOL/L (3.5-5.1); Total Protein 5.6 G/DL (6.4-8.2)
[2022-02-13 05:28] LABS: INR 1.1; PT Patient Result 12.5 SECS (10.1-12.1); Partial Thromboplastin Time 28.8 SECS (23.7-32.9)
[2022-02-13 05:54] LABS: Band Neutrophils 4 % (0-10); Eosinophils 2 % (0-10); Lymphocytes 39 % (20-55); Metamyelocytes 1 %; Myelocytes 1 %; Nucleated Red Blood Cells 1 /100 WBC (0-5); Total Cells Counted 100
[2022-02-13 05:56] LABS: Microcytosis 1+
[2022-02-13 05:57] LABS: Hypochromia Slight; Ovalocytes Slight; Platelet Estimate Decreased
[2022-02-13 06:01] LABS: Atypical Lymphocytes Moderate
[2022-02-13] MEDS: INSULIN REGULAR 100 UNIT/ML SUBCUT SCH ×4 (06:03→23:58)
[2022-02-13] MEDS: MAGNESIUM SULF RIDER 2 GM/50 ML PREMIX IV PRN (06:03)
[2022-02-13] MEDS: POTASSIUM CHLORIDE RIDER 20 MEQ/100 ML PREMIX IV PRN (06:04)
[2022-02-13] MEDS ORDERED: FUROSEMIDE 40 MG/4 ML VIAL IV ONE (07:40)
[2022-02-13] MEDS: INSULIN GLARGINE 100 UNIT/ML SUBCUT SCH (09:05)
[2022-02-13] MEDS: CHOLECALCIFEROL 5,000 UNIT TABLET PO SCH (09:05)
[2022-02-13] MEDS: PANTOPRAZOLE 40 MG VIAL IV SCH ×2 (09:05→20:49)
[2022-02-13] MEDS: FOLIC ACID 1 MG TABLET PO SCH ×2 (09:05→20:49)
[2022-02-13] MEDS: POTASSIUM PHOS/SOD PHOS POWDER 250 MG PACK PER TUBE SCH ×2 (09:08→20:49)
[2022-02-13] MEDS: MICAFUNGIN 100 MG in SODIUM CHLORIDE 0.9% 100 ML IV SCH (12:43)
[2022-02-14] MEDS: ALBUTEROL/IPRATROPIUM 3 ML NEB RESP TX SCH ×4 (00:26→18:48)
[2022-02-14 03:16] LABS: Arterial Bicarbonate iSTAT 27.3 MMOL/L (20-26); Arterial pH iSTAT 7.499 (7.35-7.45)
[2022-02-14 05:13] LABS: Basophils # 0.1 10*3/uL (0.0-0.2); Basophils % 0.2 % (0.0-0.8); Eosinophils # 1.5 10*3/uL (0.0-0.87); Eosinophils % 2.7 % (0.00-10.9); Hematocrit 23.7 VOL% (35.7-47.0); Hemoglobin 7.4 GM/DL (12.0-16.0); Immature Granulocytes % 7.3 %; Immature Granulocytes Absolute 4.07 #; Lymphocytes % 14.4 % (21.3-54.2); Mean Corpuscular HGB Conc 31.2 GM/DL (32-36); Mean Corpuscular Volume 87.8 FL (87-102); Monocytes # 29.9 10*3/uL (0.11-0.8); Monocytes % 53.5 % (1.7-12.7); NRBC # 0.32 10*3/uL; Neutrophils % 21.9 % (38.7-73.9); Red Cell Distribution Width 22.4 % (9.3-17.3)
[2022-02-14 05:21] LABS: White Blood Count 55.8 T/CUMM (4-12)
[2022-02-14 05:22] LABS: Platelet Count 19 T/CUMM (130-400)
[2022-02-14 05:40] LABS: Osmolality,Calculated 292.8 MOS/KG (273-304); Potassium 3.8 MMOL/L (3.5-5.1)
[2022-02-14] MEDS: INSULIN REGULAR 100 UNIT/ML SUBCUT SCH ×3 (06:09→17:57)
[2022-02-14] MEDS: POTASSIUM BICARB EFFERVESCENT 20 MEQ TAB.EFF PER TUBE PRN (06:10)
[2022-02-14 06:13] LABS: Band Neutrophils 6 % (0-10); Eosinophils 5 % (0-10); Lymphocytes 43 % (20-55); Metamyelocytes 1 %; Myelocytes 2 %; Nucleated Red Blood Cells 3 /100 WBC (0-5); Promyelocytes 3 %; Total Cells Counted 100
[2022-02-14 06:14] LABS: Hypochromia Slight
[2022-02-14 06:15] LABS: Microcytosis 1+; Ovalocytes Slight; Platelet Estimate Decreased; Polychromasia Slight; Tear Drop Cells Slight
[2022-02-14] MEDS: FUROSEMIDE 40 MG/4 ML VIAL IV SCH (09:04)
[2022-02-14] MEDS: PANTOPRAZOLE 40 MG VIAL IV SCH (09:04)
[2022-02-14] MEDS: INSULIN GLARGINE 100 UNIT/ML SUBCUT SCH (09:04)
[2022-02-14] MEDS: CHOLECALCIFEROL 5,000 UNIT TABLET PO SCH (09:05)
[2022-02-14] MEDS: FOLIC ACID 1 MG TABLET PO SCH ×2 (09:05→20:58)
[2022-02-14] MEDS: MICAFUNGIN 100 MG in SODIUM CHLORIDE 0.9% 100 ML IV SCH (12:56)
[2022-02-14] MEDS: IBUPROFEN 100 MG/5 ML UDCUP PO PRN (18:10)
[2022-02-15] MEDS: MORPHINE 2 MG/1 ML SYRINGE IV PRN ×5 (00:02→21:49)
[2022-02-15] MEDS: INSULIN REGULAR 100 UNIT/ML SUBCUT SCH ×5 (00:17→23:50)
[2022-02-15] MEDS: ALBUTEROL/IPRATROPIUM 3 ML NEB RESP TX SCH ×4 (01:17→18:47)
[2022-02-15 03:57] LABS: ABG Base Excess 4.5 MMOL/L (-2.5-2.5); ABG HCO3 28.4 MMOL/L (20-26); ABG Oxygen Saturation 95.8 % (95-100); ABG PCO2 41.4 MM HG (35-48); ABG PO2 79.9 MM HG (80-95); ABG TCO2 26.9 MMOL/L (23-27)
[2022-02-15 04:04] LABS: Basophils # 0.1 10*3/uL (0.0-0.2); Basophils % 0.2 % (0.0-0.8); Eosinophils # 1.7 10*3/uL (0.0-0.87); Eosinophils % 2.4 % (0.00-10.9); Hematocrit 24.5 VOL% (35.7-47.0); Hemoglobin 7.6 GM/DL (12.0-16.0); Immature Granulocytes Absolute 6.26 #; Lymphocytes # 10.2 10*3/uL (1.4-4.0); Lymphocytes % 14.8 % (21.3-54.2); Mean Corpuscular Volume 87.8 FL (87-102); Monocytes # 36.8 10*3/uL (0.11-0.8); Monocytes % 53.2 % (1.7-12.7); NRBC # 0.27 10*3/uL; Neutrophils % 20.4 % (38.7-73.9); Red Blood Count 2.79 MC/CUMM (3.8-5.5); Red Cell Distribution Width 22.5 % (9.3-17.3)
[2022-02-15 04:11] LABS: Platelet Count 38 T/CUMM (130-400)
[2022-02-15 04:12] LABS: White Blood Count 69.2 T/CUMM (4-12)
[2022-02-15 04:16] LABS: Osmolality,Calculated 299.6 MOS/KG (273-304); Potassium 3.8 MMOL/L (3.5-5.1)
[2022-02-15 04:28] LABS: Band Neutrophils 3 % (0-10); Eosinophils 2 % (0-10); Lymphocytes 55 % (20-55); Myelocytes 7 %; Nucleated Red Blood Cells 2 /100 WBC (0-5); Platelet Estimate Decreased; Promyelocytes 9 %; Total Cells Counted 100
[2022-02-15] MEDS: FUROSEMIDE 40 MG/4 ML VIAL IV SCH (09:15)
[2022-02-15] MEDS: INSULIN GLARGINE 100 UNIT/ML SUBCUT SCH (09:15)
[2022-02-15] MEDS: PANTOPRAZOLE 40 MG VIAL IV SCH (09:15)
[2022-02-15] MEDS: CHOLECALCIFEROL 5,000 UNIT TABLET PO SCH (09:20)
[2022-02-15] MEDS: FOLIC ACID 1 MG TABLET PO SCH ×2 (09:20→20:50)
[2022-02-15] MEDS ORDERED: SODIUM CHLORIDE 0.9% 1,000 ML IV PRN (10:02)
[2022-02-15] MEDS: MICAFUNGIN 100 MG in SODIUM CHLORIDE 0.9% 100 ML IV SCH (11:56)
[2022-02-15] MEDS: MIDAZOLAM DRIP 100 MG/100 ML PREMIX IV PRN (13:20)
[2022-02-16] MEDS: ALBUTEROL/IPRATROPIUM 3 ML NEB RESP TX SCH ×4 (00:23→19:21)
[2022-02-16] MEDS: MIDAZOLAM DRIP 100 MG/100 ML PREMIX IV PRN ×2 (04:10→13:52)
[2022-02-16 04:15] LABS: ABG HCO3 29.9 MMOL/L (20-26); ABG Oxygen Saturation 96.7 % (95-100); ABG PCO2 41.9 MM HG (35-48); ABG PH 7.467 (7.35-7.45); ABG TCO2 28.4 MMOL/L (23-27)
[2022-02-16 04:22] LABS: Basophils # 0.1 10*3/uL (0.0-0.2); Basophils % 0.1 % (0.0-0.8); Eosinophils # 1.8 10*3/uL (0.0-0.87); Eosinophils % 3.1 % (0.00-10.9); Hematocrit 21.7 VOL% (35.7-47.0); Hemoglobin 6.7 GM/DL (12.0-16.0); Immature Granulocytes % 9.6 %; Immature Granulocytes Absolute 5.71 #; Lymphocytes % 11.8 % (21.3-54.2); Mean Corpuscular HGB Conc 30.9 GM/DL (32-36); Mean Corpuscular Volume 88.6 FL (87-102); Monocytes # 33.7 10*3/uL (0.11-0.8); Monocytes % 56.8 % (1.7-12.7); NRBC # 0.15 10*3/uL; Neutrophils % 18.6 % (38.7-73.9); Platelet Count 43 T/CUMM (130-400); Red Blood Count 2.45 MC/CUMM (3.8-5.5)
[2022-02-16 04:29] LABS: White Blood Count 59.4 T/CUMM (4-12)
[2022-02-16 04:31] LABS: Calcium 8.3 MG/DL (8.5-10.1); Osmolality,Calculated 294.7 MOS/KG (273-304); Potassium 3.8 MMOL/L (3.5-5.1)
[2022-02-16 05:01] LABS: Band Neutrophils 2 % (0-10); Eosinophils 6 % (0-10); Lymphocytes 38 % (20-55); Metamyelocytes 6 %; Myelocytes 1 %; Platelet Estimate Decreased; Polychromasia Slight; Promyelocytes 2 %; Total Cells Counted 100
[2022-02-16] MEDS: INSULIN REGULAR 100 UNIT/ML SUBCUT SCH ×3 (06:19→17:30)
[2022-02-16] MEDS ORDERED: CALCIUM GLUCONATE RIDER 1,000 MG/50 ML PREMIX IV ONE (08:31)
[2022-02-16] MEDS: PANTOPRAZOLE 40 MG VIAL IV SCH (08:58)
[2022-02-16] MEDS: FUROSEMIDE 40 MG/4 ML VIAL IV SCH (08:59)
[2022-02-16] MEDS: FOLIC ACID 1 MG TABLET PO SCH ×2 (08:59→20:42)
[2022-02-16] MEDS: CHOLECALCIFEROL 5,000 UNIT TABLET PO SCH (08:59)
[2022-02-16] MEDS: INSULIN GLARGINE 100 UNIT/ML SUBCUT SCH (09:02)
[2022-02-16] MEDS: MICAFUNGIN 100 MG in SODIUM CHLORIDE 0.9% 100 ML IV SCH (12:19)
[2022-02-16 13:21] LABS: Reason for Referral PERSISTENT ANEMIA; Specimen Source Peripheral blood
[2022-02-17] MEDS: INSULIN REGULAR 100 UNIT/ML SUBCUT SCH ×4 (00:14→17:45)
[2022-02-17] MEDS: ALBUTEROL/IPRATROPIUM 3 ML NEB RESP TX SCH ×5 (02:14→23:55)
[2022-02-17 04:31] LABS: ABG Base Excess 5.1 MMOL/L (-2.5-2.5); ABG Oxygen Saturation 97.6 % (95-100); ABG PH 7.438 (7.35-7.45); ABG PO2 96.2 MM HG (80-95); ABG TCO2 27.9 MMOL/L (23-27)
[2022-02-17 04:44] LABS: Basophils # 0.2 10*3/uL (0.0-0.2); Basophils % 0.3 % (0.0-0.8); Eosinophils # 1.3 10*3/uL (0.0-0.87); Eosinophils % 2.3 % (0.00-10.9); Hematocrit 24.5 VOL% (35.7-47.0); Hemoglobin 7.6 GM/DL (12.0-16.0); Immature Granulocytes % 8.7 %; Immature Granulocytes Absolute 4.95 #; Lymphocytes # 6.9 10*3/uL (1.4-4.0); Lymphocytes % 12.1 % (21.3-54.2); Mean Corpuscular Volume 88.8 FL (87-102); Monocytes # 31.7 10*3/uL (0.11-0.8); NRBC # 0.14 10*3/uL; Neutrophils % 20.6 % (38.7-73.9); Platelet Count 52 T/CUMM (130-400); Red Blood Count 2.76 MC/CUMM (3.8-5.5); Red Cell Distribution Width 21.4 % (9.3-17.3)
[2022-02-17 04:46] LABS: White Blood Count 56.7 T/CUMM (4-12)
[2022-02-17 05:00] LABS: Calcium 8.5 MG/DL (8.5-10.1)
[2022-02-17 05:03] LABS: Albumin 1.9 G/DL (3.4-5.0); Bilirubin,Direct 0.63 MG/DL (0.0-0.20); Bilirubin,Indirect 0.4 MG/DL (0.0-1.0); Total Protein 5.5 G/DL (6.4-8.2)
[2022-02-17 05:17] LABS: Atypical Lymphocytes Moderate; Band Neutrophils 5 % (0-10); Eosinophils 2 % (0-10); Hypochromia 1+; INR 1.1; Lymphocytes 36 % (20-55); Metamyelocytes 2 %; Microcytosis Slight; Myelocytes 5 %; Nucleated Red Blood Cells 1 /100 WBC (0-5); Ovalocytes Few; PT Patient Result 12.3 SECS (10.1-12.1); Partial Thromboplastin Time 26.2 SECS (23.7-32.9); Platelet Estimate Decreased; Promyelocytes 1 %; Total Cells Counted 100
[2022-02-17] MEDS: INSULIN GLARGINE 100 UNIT/ML SUBCUT SCH (08:20)
[2022-02-17] MEDS: FUROSEMIDE 40 MG/4 ML VIAL IV SCH ×2 (08:20→21:19)
[2022-02-17] MEDS: PANTOPRAZOLE 40 MG VIAL IV SCH (08:20)
[2022-02-17] MEDS: CHOLECALCIFEROL 5,000 UNIT TABLET PO SCH (08:25)
[2022-02-17] MEDS: FOLIC ACID 1 MG TABLET PO SCH ×2 (08:25→21:28)
[2022-02-17] MEDS ORDERED: FUROSEMIDE 40 MG/4 ML VIAL IV SCH (08:30)
[2022-02-17] MEDS: MICAFUNGIN 100 MG in SODIUM CHLORIDE 0.9% 100 ML IV SCH (12:20)
[2022-02-17] MEDS: MORPHINE 2 MG/1 ML SYRINGE IV PRN (21:38)
[2022-02-18] MEDS: INSULIN REGULAR 100 UNIT/ML SUBCUT SCH ×4 (00:05→18:37)
[2022-02-18 04:39] LABS: ABG Base Excess 6.8 MMOL/L (-2.5-2.5); ABG HCO3 30.7 MMOL/L (20-26); ABG Oxygen Saturation 98.1 % (95-100); ABG PCO2 41.5 MM HG (35-48)
[2022-02-18 04:47] LABS: Basophils # 0.1 10*3/uL (0.0-0.2); Basophils % 0.2 % (0.0-0.8); Eosinophils # 1.5 10*3/uL (0.0-0.87); Eosinophils % 3.2 % (0.00-10.9); Hematocrit 22.9 VOL% (35.7-47.0); Hemoglobin 7.2 GM/DL (12.0-16.0); Immature Granulocytes Absolute 3.22 #; Lymphocytes # 6.1 10*3/uL (1.4-4.0); Lymphocytes % 13.3 % (21.3-54.2); Mean Corpuscular HGB Conc 31.4 GM/DL (32-36); Mean Corpuscular Volume 89.5 FL (87-102); Monocytes # 24.3 10*3/uL (0.11-0.8); Monocytes % 53.1 % (1.7-12.7); NRBC # 0.09 10*3/uL; Neutrophils % 23.2 % (38.7-73.9); Red Blood Count 2.56 MC/CUMM (3.8-5.5); Red Cell Distribution Width 20.9 % (9.3-17.3)
[2022-02-18 04:51] LABS: Platelet Count 31 T/CUMM (130-400); White Blood Count 45.7 T/CUMM (4-12)
[2022-02-18 05:25] LABS: Calcium 8.3 MG/DL (8.5-10.1); Osmolality,Calculated 289.3 MOS/KG (273-304); Potassium 3.6 MMOL/L (3.5-5.1)
[2022-02-18] MEDS: POTASSIUM CHLORIDE RIDER 20 MEQ/100 ML PREMIX IV PRN (06:40)
[2022-02-18] MEDS: MAGNESIUM SULF RIDER 2 GM/50 ML PREMIX IV PRN (06:45)
[2022-02-18] MEDS: ALBUTEROL/IPRATROPIUM 3 ML NEB RESP TX SCH ×3 (07:25→19:26)
[2022-02-18 08:38] LABS: Band Neutrophils 4 % (0-10); Eosinophils 5 % (0-10); Lymphocytes 43 % (20-55); Total Cells Counted 100
[2022-02-18 08:39] LABS: Anisocytosis 1+; Hypochromia Slight; Microcytosis 1+
[2022-02-18 08:40] LABS: Atypical Lymphocytes Moderate; Platelet Estimate Decreased; Polychromasia Slight
[2022-02-18] MEDS: PANTOPRAZOLE 40 MG VIAL IV SCH (09:42)
[2022-02-18] MEDS: FUROSEMIDE 40 MG/4 ML VIAL IV SCH ×2 (09:43→20:37)
[2022-02-18] MEDS: CHOLECALCIFEROL 5,000 UNIT TABLET PO SCH (09:43)
[2022-02-18] MEDS: INSULIN GLARGINE 100 UNIT/ML SUBCUT SCH (09:43)
[2022-02-18] MEDS: FOLIC ACID 1 MG TABLET PO SCH ×2 (09:43→20:37)
[2022-02-18] MEDS: POTASSIUM BICARB EFFERVESCENT 20 MEQ TAB.EFF PER TUBE SCH ×3 (09:44→15:37)
[2022-02-18] MEDS: MICAFUNGIN 100 MG in SODIUM CHLORIDE 0.9% 100 ML IV SCH (13:35)
[2022-02-18] MEDS: MORPHINE 2 MG/1 ML SYRINGE IV PRN (21:59)
[2022-02-19] MEDS: ALBUTEROL/IPRATROPIUM 3 ML NEB RESP TX SCH ×5 (00:02→23:53)
[2022-02-19] MEDS: INSULIN REGULAR 100 UNIT/ML SUBCUT SCH ×5 (02:31→23:52)
[2022-02-19 04:40] LABS: ABG Base Excess 7.2 MMOL/L (-2.5-2.5); ABG Oxygen Saturation 98.1 % (95-100); ABG PCO2 40.9 MM HG (35-48); ABG PO2 99.1 MM HG (80-95); ABG TCO2 29.3 MMOL/L (23-27)
[2022-02-19 04:44] LABS: Basophils # 0.1 10*3/uL (0.0-0.2); Basophils % 0.2 % (0.0-0.8); Eosinophils # 1.6 10*3/uL (0.0-0.87); Eosinophils % 3.2 % (0.00-10.9); Hematocrit 22.7 VOL% (35.7-47.0); Hemoglobin 7.1 GM/DL (12.0-16.0); Immature Granulocytes % 6.5 %; Lymphocytes # 6.7 10*3/uL (1.4-4.0); Lymphocytes % 13.7 % (21.3-54.2); Mean Corpuscular HGB Conc 31.3 GM/DL (32-36); Mean Corpuscular Volume 88.3 FL (87-102); Monocytes # 26.2 10*3/uL (0.11-0.8); Monocytes % 53.6 % (1.7-12.7); NRBC # 0.11 10*3/uL; Neutrophils % 22.8 % (38.7-73.9); Platelet Count 49 T/CUMM (130-400); Red Blood Count 2.57 MC/CUMM (3.8-5.5); Red Cell Distribution Width 21.4 % (9.3-17.3)
[2022-02-19 04:47] LABS: White Blood Count 48.9 T/CUMM (4-12)
[2022-02-19 05:07] LABS: Band Neutrophils 4 % (0-10); Calcium 8.5 MG/DL (8.5-10.1); Eosinophils 2 % (0-10); Lymphocytes 53 % (20-55); Metamyelocytes 1 %; Nucleated Red Blood Cells 1 /100 WBC (0-5); Osmolality,Calculated 288.3 MOS/KG (273-304); Potassium 3.8 MMOL/L (3.5-5.1); Total Cells Counted 100
[2022-02-19 05:08] LABS: Hypochromia Slight
[2022-02-19 05:09] LABS: Anisocytosis 1+; Microcytosis 1+; Polychromasia Slight; Target Cells Slight; Tear Drop Cells Slight
[2022-02-19 05:10] LABS: Atypical Lymphocytes Moderate; Ovalocytes Slight; Platelet Estimate Decreased
[2022-02-19] MEDS: POTASSIUM CHLORIDE RIDER 20 MEQ/100 ML PREMIX IV PRN (06:15)
[2022-02-19] MEDS: FUROSEMIDE 40 MG/4 ML VIAL IV SCH (08:39)
[2022-02-19] MEDS: FOLIC ACID 1 MG TABLET PO SCH ×2 (08:40→20:59)
[2022-02-19] MEDS: CHOLECALCIFEROL 5,000 UNIT TABLET PO SCH (08:40)
[2022-02-19] MEDS: PANTOPRAZOLE 40 MG VIAL IV SCH (08:40)
[2022-02-19] MEDS: INSULIN GLARGINE 100 UNIT/ML SUBCUT SCH (08:49)
[2022-02-19] MEDS: MICAFUNGIN 100 MG in SODIUM CHLORIDE 0.9% 100 ML IV SCH (11:17)
[2022-02-19] MEDS: ONDANSETRON 4 MG/2 ML VIAL IV PRN ×2 (11:50→18:55)
[2022-02-19] MEDS: IBUPROFEN 100 MG/5 ML UDCUP PO PRN (13:12)
[2022-02-19] MEDS ORDERED: MORPHINE 2 MG/1 ML SYRINGE IV ONE (17:45)
[2022-02-19] MEDS ORDERED: FUROSEMIDE 40 MG/4 ML VIAL IV ONE (17:52)
[2022-02-19] MEDS ORDERED: ALBUMIN 25% 12.5 GM/50 ML VIAL IV ONE (17:57)
[2022-02-19] MEDS ORDERED: ONDANSETRON 4 MG/2 ML VIAL IV ONE (19:33)
[2022-02-19] MEDS ORDERED: PROMETHAZINE INJ 12.5 MG in SODIUM CHLORIDE 0.9% 50 ML IV ONE (20:45)
[2022-02-19] MEDS ORDERED: METOCLOPRAMIDE 10 MG/2 ML VIAL IV ONE (20:46)
[2022-02-20] MEDS: FUROSEMIDE 40 MG/4 ML VIAL IV SCH ×3 (00:15→20:41)
[2022-02-20] MEDS: MORPHINE 2 MG/1 ML SYRINGE IV PRN ×3 (01:04→20:38)
[2022-02-20] MEDS: LORazepam 2 MG/1 ML VIAL IV PRN ×3 (03:53→17:36)
[2022-02-20 04:07] LABS: Basophils # 0.2 10*3/uL (0.0-0.2); Basophils % 0.2 % (0.0-0.8); Eosinophils # 2.5 10*3/uL (0.0-0.87); Eosinophils % 3.2 % (0.00-10.9); Hematocrit 23.1 VOL% (35.7-47.0); Hemoglobin 7.3 GM/DL (12.0-16.0); Immature Granulocytes % 8.7 %; Immature Granulocytes Absolute 6.87 #; Lymphocytes # 9.4 10*3/uL (1.4-4.0); Lymphocytes % 11.9 % (21.3-54.2); Mean Corpuscular HGB Conc 31.6 GM/DL (32-36); Mean Corpuscular Volume 89.2 FL (87-102); Monocytes # 42.2 10*3/uL (0.11-0.8); Monocytes % 53.2 % (1.7-12.7); NRBC # 0.13 10*3/uL; Neutrophils % 22.8 % (38.7-73.9); Platelet Count 60 T/CUMM (130-400); Red Blood Count 2.59 MC/CUMM (3.8-5.5); Red Cell Distribution Width 21.2 % (9.3-17.3)
[2022-02-20 04:12] LABS: White Blood Count 79.3 T/CUMM (4-12)
[2022-02-20 04:29] LABS: Calcium 8.6 MG/DL (8.5-10.1); Osmolality,Calculated 283.4 MOS/KG (273-304); Potassium 3.3 MMOL/L (3.5-5.1)
[2022-02-20 04:35] LABS: Band Neutrophils 4 % (0-10); Eosinophils 3 % (0-10); Lymphocytes 48 % (20-55); Metamyelocytes 2 %; Myelocytes 1 %; Total Cells Counted 100
[2022-02-20 04:36] LABS: Hypochromia Slight; Microcytosis 1+; Platelet Estimate Decreased
[2022-02-20 04:37] LABS: Anisocytosis 1+; Atypical Lymphocytes Moderate
[2022-02-20] MEDS: MAGNESIUM SULF RIDER 2 GM/50 ML PREMIX IV PRN (04:42)
[2022-02-20] MEDS: POTASSIUM CHLORIDE RIDER 20 MEQ/100 ML PREMIX IV PRN ×2 (04:57→06:56)
[2022-02-20] MEDS: INSULIN REGULAR 100 UNIT/ML SUBCUT SCH ×3 (06:02→17:59)
[2022-02-20] MEDS: ALBUTEROL/IPRATROPIUM 3 ML NEB RESP TX SCH ×3 (07:08→19:05)
[2022-02-20] MEDS ORDERED: ALBUMIN 25% 12.5 GM/50 ML VIAL IV ONE (07:46)
[2022-02-20] MEDS: FOLIC ACID 1 MG TABLET PO SCH ×2 (08:21→20:38)
[2022-02-20] MEDS: PANTOPRAZOLE 40 MG VIAL IV SCH (08:21)
[2022-02-20] MEDS: CHOLECALCIFEROL 5,000 UNIT TABLET PO SCH (08:21)
[2022-02-20] MEDS: MICAFUNGIN 100 MG in SODIUM CHLORIDE 0.9% 100 ML IV SCH (11:07)
[2022-02-20] MEDS: INSULIN GLARGINE 100 UNIT/ML SUBCUT SCH (12:09)
[2022-02-20] MEDS ORDERED: METOPROLOL TARTRATE 5 MG/5 ML VIAL IV ONE ×2 (15:15→15:17)
[2022-02-20] MEDS: MENTHOL/ZINC OXIDE OINT 71 GM JAR TOP SCH (20:51)
[2022-02-21] MEDS: INSULIN REGULAR 100 UNIT/ML SUBCUT SCH ×5 (00:01→23:35)
[2022-02-21] MEDS: ALBUTEROL/IPRATROPIUM 3 ML NEB RESP TX SCH ×4 (00:22→19:06)
[2022-02-21] MEDS: LORazepam 2 MG/1 ML VIAL IV PRN ×2 (03:28→14:10)
[2022-02-21 03:54] LABS: Arterial Base Excess iSTAT 9 MMOL/L (-2.5-2.5); Arterial Bicarbonate iSTAT 33.9 MMOL/L (20-26); Arterial O2 Saturation iSTAT 99 % (95-100); Arterial PCO2 iSTAT 47 MM HG (35-48); Arterial PO2 iSTAT 138 MM HG (80-95); Arterial Total CO2 iSTAT 35 MMO/L (23-27); Arterial pH iSTAT 7.468 (7.35-7.45)
[2022-02-21 04:26] LABS: Basophils # 0.2 10*3/uL (0.0-0.2); Basophils % 0.2 % (0.0-0.8); Eosinophils # 2.2 10*3/uL (0.0-0.87); Eosinophils % 3.3 % (0.00-10.9); Hematocrit 21.7 VOL% (35.7-47.0); Hemoglobin 6.7 GM/DL (12.0-16.0); Immature Granulocytes % 10.7 %; Immature Granulocytes Absolute 7.07 #; Lymphocytes # 8.3 10*3/uL (1.4-4.0); Lymphocytes % 12.5 % (21.3-54.2); Mean Corpuscular HGB Conc 30.9 GM/DL (32-36); Monocytes # 33.8 10*3/uL (0.11-0.8); NRBC # 0.07 10*3/uL; Neutrophils % 22.3 % (38.7-73.9); Platelet Count 51 T/CUMM (130-400); Red Blood Count 2.41 MC/CUMM (3.8-5.5); Red Cell Distribution Width 21.4 % (9.3-17.3)
[2022-02-21 04:29] LABS: White Blood Count 66.3 T/CUMM (4-12)
[2022-02-21 04:42] LABS: Calcium 8.7 MG/DL (8.5-10.1); Potassium 3.2 MMOL/L (3.5-5.1)
[2022-02-21 04:44] LABS: Albumin 2.2 G/DL (3.4-5.0); Bilirubin,Direct 1.29 MG/DL (0.0-0.20); Bilirubin,Indirect 0.8 MG/DL (0.0-1.0); Bilirubin,Total 2.1 MG/DL (0.20-1.00)
[2022-02-21 04:49] LABS: Band Neutrophils 4 % (0-10); Eosinophils 4 % (0-10); Lymphocytes 50 % (20-55); Nucleated Red Blood Cells 1 /100 WBC (0-5); Total Cells Counted 100
[2022-02-21 04:50] LABS: Hypochromia Slight; Microcytosis 1+; Ovalocytes Slight; Polychromasia Slight
[2022-02-21 04:51] LABS: Platelet Estimate Decreased
[2022-02-21] MEDS: MAGNESIUM SULF RIDER 2 GM/50 ML PREMIX IV PRN (05:20)
[2022-02-21] MEDS: POTASSIUM CHLORIDE RIDER 20 MEQ/100 ML PREMIX IV PRN ×2 (05:21→07:20)
[2022-02-21] MEDS: CHOLECALCIFEROL 5,000 UNIT TABLET PO SCH (08:09)
[2022-02-21] MEDS: FOLIC ACID 1 MG TABLET PO SCH ×2 (08:09→21:09)
[2022-02-21] MEDS: MENTHOL/ZINC OXIDE OINT 71 GM JAR TOP SCH ×2 (08:09→22:26)
[2022-02-21] MEDS: PANTOPRAZOLE 40 MG VIAL IV SCH (08:10)
[2022-02-21] MEDS: FUROSEMIDE 40 MG/4 ML VIAL IV SCH ×2 (08:10→21:10)
[2022-02-21] MEDS: INSULIN GLARGINE 100 UNIT/ML SUBCUT SCH (08:11)
[2022-02-21] MEDS: SPIRONOLACTONE 25 MG TABLET PO SCH ×2 (09:25→21:09)
[2022-02-21] MEDS: LEVOFLOXACIN INJ 750 MG/150 ML PREMIX IV SCH (09:25)
[2022-02-21] MEDS ORDERED: SODIUM CHLORIDE 0.9% 1,000 ML IV PRN ×2 (09:57→10:54)
[2022-02-21] MEDS ORDERED: FUROSEMIDE 40 MG/4 ML VIAL IV ONE (14:30)
[2022-02-21 16:29] VITALS: BP 142/65
[2022-02-22] MEDS: ALBUTEROL/IPRATROPIUM 3 ML NEB RESP TX SCH ×4 (00:19→19:27)
[2022-02-22 04:34] LABS: Basophils # 0.2 10*3/uL (0.0-0.2); Basophils % 0.2 % (0.0-0.8); Eosinophils % 3.4 % (0.00-10.9); Hematocrit 26.1 VOL% (35.7-47.0); Immature Granulocytes % 9.8 %; Immature Granulocytes Absolute 5.89 #; Lymphocytes # 6.7 10*3/uL (1.4-4.0); Lymphocytes % 11.1 % (21.3-54.2); Mean Corpuscular HGB Conc 32.6 GM/DL (32-36); Mean Corpuscular Volume 89.4 FL (87-102); Monocytes # 29.8 10*3/uL (0.11-0.8); Monocytes % 49.5 % (1.7-12.7); NRBC # 0.07 10*3/uL; Red Cell Distribution Width 19.1 % (9.3-17.3)
[2022-02-22 04:41] LABS: White Blood Count 60.1 T/CUMM (4-12)
[2022-02-22 04:42] LABS: Hemoglobin 8.5 GM/DL (12.0-16.0); Platelet Count 38 T/CUMM (130-400); Red Blood Count 2.92 MC/CUMM (3.8-5.5)
[2022-02-22 04:58] LABS: Albumin 2.2 G/DL (3.4-5.0); Bilirubin,Total 2.3 MG/DL (0.20-1.00); Calcium 8.9 MG/DL (8.5-10.1); Osmolality,Calculated 283.3 MOS/KG (273-304); Potassium 2.9 MMOL/L (3.5-5.1); Total Protein 7.1 G/DL (6.4-8.2)
[2022-02-22 05:32] LABS: Band Neutrophils 6 % (0-10); Lymphocytes 44 % (20-55); Myelocytes 1 %; Total Cells Counted 100
[2022-02-22 05:33] LABS: Platelet Estimate Decreased
[2022-02-22 05:34] LABS: Hypochromia Slight; Microcytosis Slight
[2022-02-22] MEDS: POTASSIUM CHLORIDE RIDER 20 MEQ/100 ML PREMIX IV PRN ×3 (06:07→14:11)
[2022-02-22] MEDS: INSULIN REGULAR 100 UNIT/ML SUBCUT SCH ×3 (06:08→17:58)
[2022-02-22] MEDS: SPIRONOLACTONE 25 MG TABLET PO SCH ×2 (08:22→22:35)
[2022-02-22] MEDS: FOLIC ACID 1 MG TABLET PO SCH ×2 (08:22→21:50)
[2022-02-22] MEDS: CHOLECALCIFEROL 5,000 UNIT TABLET PO SCH (08:22)
[2022-02-22] MEDS: LEVOFLOXACIN INJ 750 MG/150 ML PREMIX IV SCH (08:23)
[2022-02-22] MEDS: PANTOPRAZOLE 40 MG VIAL IV SCH (08:25)
[2022-02-22] MEDS: FUROSEMIDE 40 MG/4 ML VIAL IV SCH ×2 (08:29→21:46)
[2022-02-22] MEDS: MENTHOL/ZINC OXIDE OINT 71 GM JAR TOP SCH ×2 (08:31→22:24)
[2022-02-22] MEDS: INSULIN GLARGINE 100 UNIT/ML SUBCUT SCH (08:36)
[2022-02-22] MEDS: POTASSIUM CHLORIDE RIDER 10 MEQ/100 ML PREMIX IV PRN ×2 (09:56→16:22)
[2022-02-22] MEDS: FAMOTIDINE 20 MG/2 ML VIAL IV SCH (17:55)
[2022-02-22] MEDS: MORPHINE 2 MG/1 ML SYRINGE IV PRN (22:25)
[2022-02-23] MEDS: ALBUTEROL/IPRATROPIUM 3 ML NEB RESP TX SCH ×2 (00:20→07:13)
[2022-02-23] MEDS: INSULIN REGULAR 100 UNIT/ML SUBCUT SCH ×2 (04:41→07:10)
[2022-02-23 05:00] LABS: Basophils # 0.2 10*3/uL (0.0-0.2); Basophils % 0.2 % (0.0-0.8); Eosinophils # 2.6 10*3/uL (0.0-0.87); Eosinophils % 3.9 % (0.00-10.9); Hematocrit 25.7 VOL% (35.7-47.0); Hemoglobin 8.2 GM/DL (12.0-16.0); Immature Granulocytes % 9.4 %; Immature Granulocytes Absolute 6.16 #; Lymphocytes # 8.3 10*3/uL (1.4-4.0); Lymphocytes % 12.6 % (21.3-54.2); Mean Corpuscular HGB Conc 31.9 GM/DL (32-36); Mean Corpuscular Volume 89.9 FL (87-102); Monocytes # 33.2 10*3/uL (0.11-0.8); Monocytes % 50.5 % (1.7-12.7); NRBC # 0.05 10*3/uL; Neutrophils % 23.4 % (38.7-73.9); Red Blood Count 2.86 MC/CUMM (3.8-5.5)
[2022-02-23 05:13] LABS: Platelet Count 34 T/CUMM (130-400); White Blood Count 65.8 T/CUMM (4-12)
[2022-02-23 05:15] LABS: Calcium 9.3 MG/DL (8.5-10.1); Osmolality,Calculated 276.7 MOS/KG (273-304); Potassium 3.5 MMOL/L (3.5-5.1)
[2022-02-23 05:38] LABS: Band Neutrophils 2 % (0-10); Eosinophils 3 % (0-10); Lymphocytes 38 % (20-55); Total Cells Counted 100
[2022-02-23 05:39] LABS: Hypochromia 1+; Microcytosis 1+; Platelet Estimate Decreased
[2022-02-23] MEDS: MAGNESIUM SULF RIDER 2 GM/50 ML PREMIX IV PRN (06:25)
[2022-02-23] MEDS: FAMOTIDINE 20 MG/2 ML VIAL IV SCH (07:11)
== END 2022-02-23 07:29 | disposition hospice, home (50) | DRG 870 ==
LOC: N.ED 08:12 → N.EDINP 11:45 → SUATTDRO 11:45 → N.ICU 13:13
PROVIDERS: ADMIT Family Medicine; ATTEND Family Medicine